=== PATIENT | male | born 1990 | race Two or more races ===

== ENCOUNTER 2020-03-22 06:41 | Emergency (ER) | payer SELFPAY ==
[~2020-03-22] VITALS: Ht 180.3 cm; Wt 88.5 kg
[2020-03-22 06:48] VITALS: BP 137/96
--- NOTE | 2020-03-22 06:55 | NUR ---
ED Nurse Note: brought in by lasd for med clearance. pt does not have any complaints at this time. lasd at bedside, aaox4, ambulatory, vss, nad, ermd at bedside.
--- NOTE | 2020-03-22 06:58 | Emergency Room Report ---
History of Present Illness General Chief Complaint: Medical Clearance Source: Patient Present Illness HPI 29-year-old male with no prior medical history brought in by PD for senior living check. States he has had positive COVID contacts and is experiencing nonbloody diarrhea x1 day. Denies fever, abdominal pain, back pain, chest pain, cough, shortness of breath, wheezing. The patient's symptoms were gradual onset, severity was moderate, duration since 1 day. Quality: No pain Severity: mild Past medical history: Denies Past surgical history: Denies Smoking: +tobacco Alcohol use: Denies Drug use: +marijuana Review of systems: CONST: No fevers or chills, No night sweats PULMONARY: No productive cough, No shortness of breath CARDIAC: No chest pain, No palpitations GI: No vomiting, + diarrhea , No melena_or_BRBPR : No dysuria, No hematuria, No discharge NEURO: No new_focal_weakness_or_numbness, No confusion, No vision changes 14 point Review of Systems is otherwise negative except per HPI Physical Exam: GENERAL: Awake_alert_ nontoxic, no acute distress Spo2 92% on RA -normal EYES: Extraocular muscles are intact. Conjunctivae clear. Lids without swelling ENT: External nose and ear normal_in_appearance. Oropharynx clear. Head_ atraumatic, Moist_oral_mucosa NECK: No JVD. No meningismus. No thyromegaly. Supple. Trachea midline RESP: Normal respiratory effort. Symmetric rise. No stridor. Clear_to_ auscultation_No_rales_No_wheezes CARDIAC: [Regular rate] and regular rhythm on_auscultation No_significant pedal edema. ABDOMEN: Soft. Nondistended. Nontender_No_rebound_or_guarding. MSK: Normal muscle tone, without rigidity. Extremities without asymmetric deformity or swelling. SKIN: Warm and dry. No visible cyanosis or pallor. Chronic L facial dermatitis. No cellulitis NEUROLOGIC: Alert, oriented x3. Motor_and_sensation_grossly_intact. No truncal ataxia. Gait_normal Psych: Normal mood and affect, normal judgment and insight - COORDINATION OF CARE Case was discussed with: Patient Medical Decision Making/Plan: Patient has no evidence of medical emergency that would prevent them from being booked into police custody. Patient is medically cleared for senior living. DDx: Diarrhea 2/2 viral syndrome vs gastroenteritis vs less likely colitis Vitals reviewed. Unremarkable. Patient is afebrile. Abdominal examination is nontender and non-peritoneal. No CVA tenderness to palpation. He is clinically sober and neurologically intact. No indication for abx at this time Patient received Zofran for GI upset in ED with relief of symptoms. Patient is medically clear for senior living. Pertinent physical exam findings reviewed with the patient. I educated the patient on the current treatment plan including the risks, benefits, and alternatives. I also discussed the extent and limitations of the current evaluation. The patient expressed understanding and agreement with plan. I recommended PMD at senior living follow-up within 1-2 days. Also advised that the patient return to the Emergency Department as soon as possible if they experience any new, persistent, or worsening symptoms. 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 Nursing Documentation-PM Past Medical History: No Stated History Physical Exam Vital Signs Date Time Temp Pulse Resp B/P (MAP) Pulse Ox O2 Delivery O2 Flow Rate FiO2 03/22/20 06:43 98.1 96 19 137/96 (110) 99 Room Air 03/22/20 06:48 99 Sp02 EP Interpretation: reviewed, normal Medical Decision Making Diagnostic Impression: Primary Impression: Diarrhea Additional Impression: Medical clearance for incarceration Reevaluation Time: 07:00 Last Vital Signs Date Time Temp Pulse Resp B/P (MAP) Pulse Ox O2 Delivery O2 Flow Rate FiO2 03/22/20 06:48 98.1 19 137/96 99 Room Air 03/22/20 06:48 96 99 Status: improved Disposition: LAW ENFORCEMENT IN CUST Admit Decision Time: 07:00 Additional Instructions: Medically clear for senior living. Instructions for patient/packing room worker: Follow up with your physician in 1-2 days with kendrick MD. Follow-up with your doctor sooner if your condition requires a more timely clinical reevaluation. Return to the emergency department immediately if you feel that your condition is worsening or if you have any new or concerning symptoms. Review your discharge instructions and take any prescriptions given as instructed. Allyson Zuleta D.O. Mar 22, 2020 06:58
--- NOTE | 2020-03-22 07:08 | NUR ---
ED Nurse Note: GAVE REPORT TO ULISES LEVY
[2020-03-22 07:21] VITALS: BP 140/85
--- NOTE | 2020-03-22 07:24 | NUR ---
ER DISCHARGE NOTE: Patient is cleared to be discharged per ERMD, pt is aox4, on room air, with stable vital signs. was given dc instructions, able to verbalize understanding, pt id band removed. pt is able to ambulate with steady gait. pt took all belongings. pt left ED accompanied by .
== END 2020-03-22 07:21 ==
LOC: EMR 07:15
DX: R19.7 Diarrhea, unspecified (principal); F17.200 Nicotine dependence, unspecified, uncomplicated; F12.90 Cannabis use, unspecified, uncomplicated; Z03.818 Encounter for observation for suspected exposure to other biological agents ruled out
CPT/HCPCS: 99282